=== PATIENT | male | born 1975 | race Caucasian/White ===

== ENCOUNTER 2018-07-18 10:34 | Emergency (ER) | payer OTHER | END 2018-07-18 14:25 | disposition home or self-care (01) | LOC: FTE 10:34 | DX: S52.571A Other intraarticular fracture of lower end of right radius, initial encounter for closed fracture (principal); S52.611A Displaced fracture of right ulna styloid process, initial encounter for closed fracture; W19.XXXA Unspecified fall, initial encounter; Y92.9 Unspecified place or not applicable; Z79.01 Long term (current) use of anticoagulants; Z79.82 Long term (current) use of aspirin | CPT/HCPCS: 29125; 73110-LT; 99283-25 ==